=== PATIENT | female | born 2005 | race Caucasian/White ===

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

== ENCOUNTER 2025-04-15 18:03 | Emergency (ER) | payer OTHER ==
[~2025-04-15] VITALS: Ht 157.5 cm; Wt 59.0 kg
[~2025-04-15 18:03] MED LIST: AZIT250T PO
[2025-04-15] MEDS: IV NS 0.9% 1,000 ML BAG IV ONE (18:40)
[2025-04-15 18:43] LABS: PLATELET COUNT (AUTO) 337 K/uL (150-450); RED BLOOD CELL COUNT(AUTO) 4.48 MIL/uL (4.0-5.2); RED CELL DISTRIBUTION WIDTH 13.6 % (11.5-15.0); WHITE BLOOD COUNT (AUTO) 9.0 K/uL (4.3-11.0)
[2025-04-15 18:52] LABS: CALCIUM, SERUM 9.5 mg/dL (8.5-10.1); CREATININE 0.9 mg/dL (0.6-1.3); SODIUM SERUM 143 mmol/L (136-145); UREA NITROGEN, BLOOD 17 mg/dL (7-18)
[2025-04-15 19:01] LABS: PREGNANCY TEST URINE QUAL NEGATIVE (NEGATIVE)
[2025-04-15] MEDS ORDERED: ACET325T53 PO (20:14)
[2025-04-15] MEDS ORDERED: NAPR-1009 PO (20:14)
[2025-04-15] MEDS ORDERED: ONDA4TAB11 PO (20:14)
[2025-04-15] MEDS: KETOROLAC TROMETHAMINE 15 MG/ML VIAL IV ONE (20:32)
[2025-04-15] MEDS ORDERED: KETOROLAC TROMETHAMINE 15 MG/ML VIAL ONE (20:32)
[2025-04-15] MEDS: ACETAMINOPHEN ES 500 MG TABLET PO ONE (20:32)
[2025-04-15] MEDS ORDERED: ACETAMINOPHEN ES 500 MG TABLET ONE (20:32)
[2025-04-15 20:57] VITALS: BP 118/80; TEMP 97.8; O2SAT 100
== END 2025-04-15 20:58 | disposition home or self-care (01) ==
LOC: ER 18:03
DX: R42 Dizziness and giddiness (principal); R55 Syncope and collapse; R07.89 Other chest pain; R00.0 Tachycardia, unspecified; Z87.09 Personal history of other diseases of the respiratory system; Z20.822 Contact with and (suspected) exposure to COVID-19
CPT/HCPCS: 99285; 96374; 71045; 96361; 87426; 93005; 85025; 80048; 85378; 84703; 36415; 84484; J1885; J7030

== ENCOUNTER 2025-05-17 20:08 | Emergency (ER) | payer OTHER ==
[~2025-05-17] VITALS: Ht 157.5 cm; Wt 59.0 kg
[~2025-05-17 20:08] MED LIST changes: +ACET325T53 PO; +NAPR-1009 PO; +ONDA4TAB11 PO
[2025-05-17] MEDS: ACETAMINOPHEN ES 500 MG TABLET PO ONE (21:30)
[2025-05-17] MEDS: IBUPROFEN 600 MG TABLET PO ONE (21:30)
[2025-05-17 21:49] LABS: APPEARANCE,URINE CLEAR (CLEAR); BLOOD, URINE NEGATIVE Ery/uL (NEGATIVE); LEUKOCYTE ESTERASE ,URINE TRACE (NEGATIVE); NITRITE, URINE NEGATIVE (NEGATIVE); UGLUCOSE NEGATIVE (NEGATIVE)
[2025-05-17 21:58] LABS: ADD URINE CULTURE YES; SQUAMOUS EPITHELIAL CELL,UR Moderate /HPF (None Seen)
[2025-05-17 22:22] LABS: PLATELET COUNT (AUTO) 252 K/uL (150-450); RED BLOOD CELL COUNT(AUTO) 4.17 MIL/uL (4.0-5.2); RED CELL DISTRIBUTION WIDTH 13.6 % (11.5-15.0); WHITE BLOOD COUNT (AUTO) 16.1 K/uL (4.3-11.0)
[2025-05-17 22:24] LABS: CALCIUM, SERUM 8.7 mg/dL (8.5-10.1); CREATININE 1.0 mg/dL (0.6-1.3); SODIUM SERUM 135.0 mmol/L (136-145); UREA NITROGEN, BLOOD 12.0 mg/dL (7-18)
[2025-05-17] MEDS ORDERED: ACETAMINOPHEN ES 500 MG TABLET ONE (22:25)
[2025-05-17] MEDS ORDERED: IBUPROFEN 600 MG TABLET ONE (22:25)
[2025-05-17] MEDS ORDERED: MORPHINE SULFATE INJ 4 MG/ML DISP.SYRIN ONE (22:25)
[2025-05-17 22:35] LABS: PREGNANCY TEST SERUM QUAN 0.0 mIU/mL (0-6)
[2025-05-17] MEDS ORDERED: ONDANSETRON HCL/PF 4 MG/2 ML VIAL ONE (22:38)
[2025-05-17] MEDS: IV NS 0.9% 1,000 ML BAG IV ONE (22:45)
[2025-05-17] MEDS: ONDANSETRON HCL/PF - ER 4 MG/2 ML VIAL IV ONE (22:46)
[2025-05-17] MEDS: MORPHINE SULFATE INJ 2 MG/ML DISP.SYRIN IV ONE (22:46)
[2025-05-18] MEDS ORDERED: NITR100C6 PO (00:30)
[2025-05-18] MEDS ORDERED: DOCU-141 PO (00:30)
[2025-05-18] MEDS ORDERED: POLY119P2 PO (00:30)
[2025-05-18] MEDS ORDERED: NITROFURANTOIN/MONOHYDRATE MACROCRYSTALS 100 MG CAPSULE ONE (00:33)
[2025-05-18] MEDS: NITROFURANTOIN/MONOHYDRATE MACROCRYSTALS 100 MG CAPSULE PO ONE (00:38)
[2025-05-18 00:42] VITALS: BP 122/69; TEMP 98.6; O2SAT 97
== END 2025-05-18 00:42 | disposition home or self-care (01) ==
LOC: ER 20:10
DX: N39.0 Urinary tract infection, site not specified (principal); K59.00 Constipation, unspecified; R10.32 Left lower quadrant pain
CPT/HCPCS: 99285; 74176; 96374; 76856; 96361; 96375; 85025; 80048; 87086; 81001; 36415; 84702; J2270; J2405 ×2